=== PATIENT | female | born 1945 | race Caucasian/White ===

== ENCOUNTER → 2020-08-22 | Outpatient (CLI) | payer MEDICARE ==
--- NOTE | 2020-08-23 14:04 | MM ---
Reason for exam: screening (asymptomatic). Last mammogram was performed 3 years and 10 months ago. History: Patient is postmenopausal. Family history of breast cancer in 2 maternal aunts at age 50. Cyst aspiration of the left breast, 1989. Took estrogen for 10 years beginning at age 45. Physical Findings: A clinical breast exam by your physician is recommended on an annual basis and results should be correlated with mammographic findings. MG 3D Screening Mammo W/Cad Bilateral CC and MLO view(s) were taken. Prior study comparison: November 03, 2016, bilateral MG 3d screening mammo w/cad. October 31, 2015, bilateral MG screening mammo w CAD. Finding #1: There is a round mass in the left breast. Finding #2: There are typically benign calcifications in both breasts. No significant changes in finding since November 03, 2016 and October 31, 2015. ASSESSMENT: Benign, BI-RAD 2 RECOMMENDATION: Routine screening mammogram of both breasts in 1 year.
== END | disposition home or self-care (01) ==
LOC: RADMAMWWP 13:18
PROVIDERS: ATTEND Internal Medicine
DX: Z12.31 Encounter for screening mammogram for malignant neoplasm of breast (principal)
CPT/HCPCS: 77063; 77067

== ENCOUNTER → 2022-04-24 | Outpatient (CLI) | payer MEDICARE ==
--- NOTE | 2022-04-25 06:20 | CT ---
EXAMINATION TYPE: CT pelvis wo con DATE OF EXAM: 04/24/2022 COMPARISON: None. HISTORY: Spigelian Hernia. Left-sided pain. Prior hernia surgery. CT DLP: 312 mGycm Automated exposure control for dose reduction was used. FINDINGS: Rectus muscle appears intact. No ventral or spigelian hernia seen. There is small to tiny fat-contain ing right inguinal hernia. No suspicious small or large bowel dilatation. Uterus is surgically absent. Scattered bilateral pelvi c phleboliths. Bladder poorly distended. No concerning pelvic fluid collection or adenopathy. Scatter ed phleboliths along the course of the draining ovarian veins. Ymmi-nu-weyijdbv axial joint space loss in both hips. Pubic symphysis is intact. Sacroiliac joints ar e preserved. Hqdm-ut-frtamgqh disc space narrowing and spurring L4-L5 and L5-S1 levels. IMPRESSION: No spigelian hernia is evident.
== END | disposition home or self-care (01) ==
LOC: RADCTMAIN 16:10
PROVIDERS: ATTEND Internal Medicine Critical Care Medicine
DX: K43.9 Ventral hernia without obstruction or gangrene (principal)
CPT/HCPCS: 72192

== ENCOUNTER → 2023-04-30 | Outpatient (CLI) | payer MEDICARE ==
--- NOTE | 2023-05-01 08:29 | MM ---
Reason for Exam: Screening (asymptomatic). Last mammogram was performed 2 year(s) and 9 month(s) ago. Patient History: Menarche at age 12. First Full-Term at age 18. Left ovary removed at age 42. Right ovary removed at age 42. Hysterectomy at age 42. Postmenopausal. Estrogen for 10 years from age 45 until age 55. 1990, Cyst Aspiration on the Left side. Maternal aunt had breast cancer, age 50. Maternal aunt had breast cancer, age 50. Risk Values: Sandy 5 year model risk: 1.2%. NCI Lifetime model risk: 2.0%. Prior Study Comparison: 10/31/2015 Bilateral Screening Mammogram, [facility]. 11/03/2016 Bilateral Screening Mammogram, [facility]. 08/22/2020 Bilateral Screening Mammogram, [facility]. Tissue Density: The breast tissue is heterogeneously dense. This may lower the sensitivity of mammography. Findings: Analyzed By CAD. There is no suspicious group of microcalcifications or new suspicious mass in either breast. Overall Assessment: Benign, BI-RAD 2 Management: Screening Mammogram of both breasts in 1 year. . Patient should continue monthly self-breast exams. A clinical breast exam by your physician is recommended on an annual basis. This exam should not preclude additional follow-up of suspicious palpable abnormalities. Note on Sandy scores and lifetime risk: 1. A Sandy score greater than 3% is considered moderate risk. If this is the case, consider specialist referral to assess eligibility for a risk reducing agent. 2. If overall lifetime risk for the development of breast cancer is 20% or higher, the patient may qualify for future screening with alternating mammogram and breast MRI. Electronically signed and approved by: Kiran Saldaña M.D. Radiologis
== END | disposition home or self-care (01) ==
LOC: RADMAMWWP 14:36
PROVIDERS: ATTEND Family Medicine
DX: Z12.31 Encounter for screening mammogram for malignant neoplasm of breast (principal); Z80.3 Family history of malignant neoplasm of breast; Z78.0 Asymptomatic menopausal state
CPT/HCPCS: 77063; 77067

== ENCOUNTER → 2023-07-30 | Outpatient (CLI) | payer MEDICARE ==
[2023-07-30 11:17] LABS: African American GFR (CKD) 45 (>60 ml/min/1.73 sqM); Blood Urea Nitrogen 24 mg/dL (7-17); Non-African American GFR(CKD) 39 (>60 ml/min/1.73 sqM)
--- NOTE | 2023-07-30 14:08 | CT ---
EXAMINATION TYPE: CT angio chest CT DLP: 195.50 mGycm, Automated exposure control for dose reduction was used. DATE OF EXAM: 07/30/2023 11:49 AM COMPARISON: None CLINICAL INDICATION:Female, 78 years old with history of R06.02 SHORTNESS OF BREATH; SOB. Hx PE TECHNIQUE/CONTRAST: CTA scan of the thorax is performed with IV Contrast, patient injected with 80 mL of Isovue 370, MIP images are created and reviewed these are created on a separate workstation.. FINDINGS: Pulmonary Artery: There is no evidence for a filling defect within the pulmonary vasculature to sugge st acute pulmonary embolism. The pulmonary artery is of normal size. Lungs/Pleura: Mild emphysema changes are seen throughout the lungs. No evidence of focal consolidatio n, pleural effusion or pneumothorax. Airway: Large airways are patent. Heart: Heart is within normal limits for size. Vasculature: No evidence of aortic aneurysm. Mediastinum: No gross evidence of adenopathy. Musculoskeletal: Moderate degenerative disc disease changes are present throughout the thoracolumbar spine. Soft Tissues: Unremarkable. Lower neck: No significant findings. Upper Abdomen: The gallbladder appears surgically absent. IMPRESSION: 1. No evidence of pulmonary embolism. 2. Mild emphysema changes.
== END | disposition home or self-care (01) ==
LOC: RADCTMAIN 10:22
PROVIDERS: ATTEND Internal Medicine Cardiovascular Disease
DX: J43.9 Emphysema, unspecified (principal); R06.02 Shortness of breath
CPT/HCPCS: 82565; 84520; 71275; Q9967

== ENCOUNTER → 2024-05-31 | Outpatient (CLI) | payer MEDICARE ==
--- NOTE | 2024-06-04 17:16 | MM ---
Reason for Exam: Screening (asymptomatic). Last mammogram was performed 1 year(s) and 1 month(s) ago. Patient History: Menarche at age 12. First Full-Term at age 18. Left ovary removed at age 42. Right ovary removed at age 42. Hysterectomy at age 42. Postmenopausal. Estrogen for 10 years from age 45 until age 55. 1990, Cyst Aspiration on the Left side. Maternal aunt had breast cancer, age 50. Maternal aunt had breast cancer, age 50. Risk Values: Sandy 5 year model risk: 1.2%. NCI Lifetime model risk: 1.8%. Prior Study Comparison: 04/12/2014 Left Diagnostic Mammogram, [facility]. 10/17/2014 Bilateral Diagnostic Mammogram, [facility]. 10/31/2015 Bilateral Screening Mammogram, [facility]. 11/03/2016 Bilateral Screening Mammogram, [facility]. 08/22/2020 Bilateral Screening Mammogram, [facility]. 04/30/2023 Bilateral MG 3D screening mammo w/cad, [facility]. Tissue Density: There are scattered areas of fibroglandular density. Findings: Analyzed By CAD. Chronic nodularity on the left. There is no suspicious group of microcalcifications or new suspicious mass in either breast. Overall Assessment: Benign, BI-RAD 2 Management: Screening Mammogram of both breasts in 1 year. . Patient should continue monthly self-breast exams. A clinical breast exam by your physician is recommended on an annual basis. This exam should not preclude additional follow-up of suspicious palpable abnormalities. Note on Sandy scores and lifetime risk: 1. A Sandy score greater than 3% is considered moderate risk. If this is the case, consider specialist referral to assess eligibility for a risk reducing agent. 2. If overall lifetime risk for the development of breast cancer is 20% or higher, the patient may qualify for future screening with alternating mammogram and breast MRI. Electronically signed and approved by: Melania Hernandez M.D. Radiologist
== END | disposition home or self-care (01) ==
LOC: RADMAMWWP 11:20
PROVIDERS: ATTEND Family Medicine
DX: Z12.31 Encounter for screening mammogram for malignant neoplasm of breast (principal); Z78.0 Asymptomatic menopausal state; Z80.3 Family history of malignant neoplasm of breast
CPT/HCPCS: 77063; 77067